=== PATIENT | female | born 1990 | race Caucasian/White ===

== ENCOUNTER → 2018-05-02 | Outpatient (CLI) | payer OTHER ==
[~2018-05-02] MED LIST: IOHEXOL 300 MG/ML 100ML VIAL. INT UTERIN
[2018-05-02 08:08] LABS: NEG OBC UR NEG; POS OBC UR POS; U PREG PATIENT NEGATIVE (NEG)
== END | disposition home or self-care (01) ==
LOC: RAD 07:28
DX: N92.0 Excessive and frequent menstruation with regular cycle (principal); N97.8 Female infertility of other origin; Z88.1 Allergy status to other antibiotic agents
CPT/HCPCS: 58340; 74740; 81025